=== PATIENT | female | born 1960 | race Hispanic/Latino ===

== ENCOUNTER 2019-12-20 22:15 | Emergency (ER) | payer BC, MEDICARE ==
[~2019-12-20] VITALS: Ht 160 cm; Wt 82.1 kg
[~2019-12-20 22:15] MED LIST changes: -B&O 60MG R/S 60 MG SUPP PR ONE; -BOTULINUM TOXIN TYPE A 100 UNIT VIAL IM ONE; -CEFTRIAXONE SOD 1 GM/NS 50 ML 50 ML IV ONE; -CIPRO500 MG PO; -DICYCLOMINE HCL20 MG PO; -GENTAMICIN 80MG/NS 100 ML 100 ML IV ONE; -INSULIN REGULAR, HUMAN 100 UNIT/1 ML 3ML VIAL ONE; -IOPAMIDOL 300MG/ML 50ML INFUS..BTL IV ONE; -PROMETHAZINE HC25 M1 PO
[2019-12-20] MEDS ORDERED: KETOROLAC TROMETHAMINE 30 MG/ML VIAL IV STA (22:36)
[2019-12-20] MEDS ORDERED: SODIUM CHLORIDE 0.9% 1000ML 1,000 ML IV STA ×3 (22:42→23:49)
--- NOTE | 2019-12-20 22:42 | Emergency Department Note ---
History of Present Illnes History of Present Illness Chief Complaint: suprapubic bladder sharp cramping pain History of Present Illness This is a 59 year old female. 11.5 hours ago pt had botox injection bladder to treat incontinence and removal of calcification from a ureter. Historian: Patient Arrival Mode: Car History limited by: condition of the patient (normal) Scrum Project Manager Required: No Onset (how long ago): hour(s) (7.5) Location: see above Quality: sharp Radiation: Reports non-radiation Severity: severe Onset quality: gradual Duration (how long): hour(s) (7.5) Timing of current episode: constant Progression: worsening Chronicity: new Context: Denies recent illness, Denies recent surgery, Denies recent immobilization, Denies recent travel, Denies new medications, Denies hx of DVT/PE, Denies non-compliance w/ medications Relieving factors: none Exacerbating factors: movement Associated symptoms: Reports denies other symptoms Treatments prior to arrival: none Past Medical/Family History Physician Review I have reviewed the patient's past medical and family history. Any updates have been documented here. Past Medical History Recent Fever: No Clinical Suspicion of Infectio: No New/Unexplained Change in Ment: No Past Medical History: Diabetes Other Medical History: CHRONIC BACK ANXIETY Other Surgery: brain aneursym Social History Smoking Cessation: Never Smoker Counseling Performed: No Any Illegal Drug Use: No TB Exposure/Symptoms: No Physically hurt or threatened: No Family History Family history of heart diseas: No Other Last Tetanus: unknown Any Pre-Existing Lines (PICC,: No Is patient up to date on immun: No Review of Systems Review of Systems Constitutional: Reports no symptoms EENTM: Reports no symptoms Cardiovascular: Reports no symptoms Respiratory: Reports no symptoms Gastrointestinal: Reports as per HPI Genitourinary: Reports no symptoms Musculoskeletal: Reports no symptoms Integumentary: Reports no symptoms Neurological: Reports no symptoms Psychological: Reports no symptoms Endocrine: Reports no symptoms Hematological/Lymphatic: Reports no symptoms Review of other systems: All other systems negative Physical Exam Related Data Allergies: Coded Allergies: ondansetron (Verified Allergy, Severe, 12/17/19) SOB, ITCHING celecoxib (Verified Allergy, Intermediate, hives, 11/24/16) duloxetine (Verified Allergy, Intermediate, swelling, 11/24/16) Vital signs reviewed: Yes Physical Exam CONSTITUTIONAL Constitutional: Present well-developed, Present well-nourished HENT HENT: Present normocephalic, Present atraumatic, Present oropharynx clear/moist, Present nose normal HENT L/R: Present left ext ear normal, Present right ext ear normal EYES Eyes: Reports PERRL, Reports conjunctivae normal NECK Neck: Present ROM normal PULMONARY Pulmonary: Present effort normal, Present breath sounds normal CARDIOVASCULAR Cardiovascular: Present regular rhythm, Present heart sounds normal, Present capillary refill normal, Present normal rate GASTROINTESTINAL Abdominal: Present soft, Present bowel sounds normal, Present tender (suprapubic), Present guarding; Absent rebound GENITOURINARY Genitourinary: Present exam deferred SKIN Skin: Present warm, Present dry MUSCULOSKELETAL Musculoskeletal: Present ROM normal NEUROLOGICAL Neurological: Present alert, Present oriented x 3, Present no gross motor or sensory deficits PSYCHOLOGICAL Psychological: Present mood/affect normal, Present judgement normal Results Laboratory Lab results reviewed: Yes Laboratory comments cbc normal except hbg=11.1, cmp nl except k=3.4, glu= 601, UA= +LEUKS Imaging Imaging results reviewed: Yes Impressions [place] [address] Patient Name: JHONNY BROWNING MR #: [id number] : 1960 Age/Sex: 59/F Req #: [id number] Adm Physician: Ordered by: KARY CORREA Report #: [id number] Location: [facility] Room/Bed: Procedure: [id number] HOPD/CT ABD/PEL WITH CONTRAST-HOPD Exam Date: 12/20/19 Exam Time: 2330 REPORT STATUS: Signed EXAM: CT Abdomen and Pelvis WITH contrast INDICATION: ^pain ^[id number] ^[id number] COMPARISON: None. TECHNIQUE: Abdomen and pelvis were scanned utilizing a multidetector helical scanner from the lung base to the pubic symphysis after administration of IV contrast. Coronal and sagittal reformations were obtained. Routine protocol was performed. Scan was performed when during portal venous phase. IV CONTRAST: 100 mL of Isovue 370 ORAL CONTRAST: None COMPLICATIONS: None RADIATION DOSE: Total DLP: 790 mGy*cm Estimated effective dose: (DLP x 0.015 x size factor) mSv CTDIvol has been reviewed. It is below the limits set by the Radiation Protocol Committee (RPC). Dose modulation, iterative reconstruction, and/or weight based adjustment of the mA/kV was utilized to reduce the radiation dose to as low as reasonably achievable. FINDINGS: LINES and TUBES: None. LOWER THORAX: Bibasilar atelectasis. HEPATOBILIARY: No focal hepatic lesions. No biliary ductal dilation. GALLBLADDER: No radio-opaque stones or sludge. No wall thickening. SPLEEN: No splenomegaly. PANCREAS: No focal masses or ductal dilatation. ADRENALS: No adrenal nodules KIDNEYS/URETERS: Kidneys enhance symmetrically. No hydronephrosis. No cystic or solid mass lesions. No stones. GI TRACT: No abnormal distention, wall thickening, or evidence of bowel obstruction. Appendix is normal. PELVIC ORGANS/BLADDER: Trace air in the nondependent bladder lumen. Hysterectomy. No adnexal masses. LYMPH NODES: No lymphadenopathy. VESSELS: Arterial calcifications. PERITONEUM / RETROPERITONEUM: No free air or fluid. BONES: Kyphoplasty material within mild L1 and L2 vertebral body compression fracture which are fused. Degenerative changes. SOFT TISSUES: Unremarkable. IMPRESSION: Trace air in the bladder lumen, correlate with urinalysis for evidence of urinary tract infection. Signed by: Roby Rob DO on 12/21/2019 12:25 AM Dictated By: ROBY ROB DO Transcribed By: LUBNA on 12/21/1924 COPY TO: KARY CORREA~ Critical Care Time Comments BLOOD SUGAR IMPROVED SIGNIFICANTLY 300'S. PT ADMITS BG 300'S IS PT'S BASELINE. Assessment & Plan Medical Decision Making MDM uti, perforation Assessment & Plan Final Impression: (1) UTI (urinary tract infection) (2) Hyperglycemia Depart Disposition: HOME, SELF-[facility] Meds Active Scripts Dicyclomine Hcl (DICYCLOMINE HCL) 20 Mg Tablet, 20 MG PO Q6H PRN for MODERATE PAIN (4-6), #30 TAB Prov:KARY CORREA 12/21/19 Ciprofloxacin Hcl (CIPRO) 500 Mg Tablet, 500 MG PO Q12H, #20 TAB Prov:KARY CORREA 12/21/19 Promethazine Hcl (PROMETHAZINE HCL) 25 Mg Tablet, 25 MG PO Q4H PRN for NAUSEA AND VOMITING, #20 TAB Prov:KARY CORREA 12/21/19 Reported Medications Metformin Hcl (METFORMIN HCL) 500 Mg Tablet, 1000 MG PO BID, #60 TAB 12/17/19 Hydrochlorothiazide (HYDROCHLOROTHIAZIDE) 25 Mg Tablet, 25 MG PO DAILY, #30 TAB 12/17/19 Losartan/Hydrochlorothiazide (LOSARTAN-HCTZ 100-12.5 MG TAB) 1 Each Tablet, 1 TA B PO DAILY 12/17/19 Insulin NPH Hum/Reg Insulin Hm (Humulin 70/30 Kwikpen) 100 Unit/1 Ml Insuln.pen, 15 UNITS SC BID 12/17/19 Bupropion Hcl (WELLBUTRIN SR) 150 Mg Tablet.er, 300 MG PO DAILY 12/17/19 Hydrocodone Bit/Acetaminophen (NORCO 10-325 TABLET) 1 Each Tablet, 1 TAB PO Q4HR PRN for PAIN 11/26/16 Metoprolol Succinate (METOPROLOL SUCCINATE) 25 Mg Tab.er.24h, 25 MG PO DAILY 07/23/15 Discontinued Reported Medications Insuln Asp Prt/Insulin Aspart (NOVOLOG MIX 70-30 FLEXPEN SYRN) 100 Unit/1 Ml Insuln.pen, 10 UNITS SQ AC 11/26/16 Clonazepam (CLONAZEPAM) 1 Mg Tablet, 2 MG PO QID PRN for ANXIETY, TAB 11/26/16 Citalopram Hydrobromide (CITALOPRAM HBR) 40 Mg Tablet, 40 MG PO DAILY 07/24/15 Insulin Detemir (LEVEMIR) 100 Unit/1 Ml Vial, 18 UNIT SQ HS 07/24/15 Lisinopril* (ZESTRIL*) 20 Mg Tablet, 20 MG PO Q12H 07/23/15 Medications in the ED Sodium Chloride 10 ml PRN PRN INJ IV SITE FLUSH; Start 12/20/19 at 22:45; Stop 12/13/20 at 22:44; Status UNV Ketorolac Tromethamine 30 mg ONCE STAT IV ; Start 12/20/19 at 22:36; Stop 12/20/19 at 22:37; Status UNV KARY CORREA Dec 20, 2019 22:42
[2019-12-20] MEDS ORDERED: SODIUM CHLORIDE FLUSH 10 ML SYR INJ PRN (22:45)
[2019-12-20] MEDS ORDERED: DICYCLOMINE HCL 20 MG/2 ML VIAL IM ONE ×2 (22:45→22:59)
--- OUTSIDE RECORDS SUMMARY | 2019-12-20 22:54 | XMS REPORT | Clinical Summary ---
Author Author [facility] Organization [facility] Address Unknown Phone Unavailable Care Team Providers Care Business Continuity Coordinator Name Role Phone Sammy Ayala MD PCP Allergies Comments Active Allergy Reactions Severity Noted Date Celecoxib Itching, Rash Low 05/21/2016 Duloxetine Itching 05/21/2016 Fosphenytoin Itching 05/21/2016 Medications End Date Status Medication Sig Dispensed Refills Start Date Active aspirin (ECOTRIN) 81 MG Take 81 mg by 0 enteric coated tablet mouth every morning. Active citalopram (CeleXA) 40 MG Take 40 mg by 0 tablet mouth every morning. Active montelukast (SINGULAIR) Take 10 mg by 0 10 mg tablet mouth nightly as needed. Active metFORMIN (GLUCOPHAGE) Take 1,000 mg 0 10/26/ 01 500 mg tablet by mouth 2 8 (two) times a day. Active ALPRAZolam (XANAX) 0.5 MG Take 0.5 mg 0 tablet by mouth 2 (two) times a day as needed. Active atorvastatin (LIPITOR) 40 Take 1 tablet 0 / 0/201 MG tablet by mouth 8 nightly. Active buPROPion XL (WELLBUTRIN Take 1 tablet 0 12/06 XL) 150 MG 24 hr tablet by mouth 8 every morning. Active pregabalin (LYRICA) 50 MG Take 50 mg by 0 capsule mouth 2 (two) times a day. Active metoprolol tartrate Take 50 mg by 0 (LOPRESSOR) 25 mg tablet mouth every 8 morning. Active amLODIPine (NORVASC) 10 Take 10 mg by 0 mg tablet mouth every morning. Active losartan-hydrochlorothiaz Take 1 tablet 0 sohail (HYZAAR) 100-25 mg by mouth per tablet every morning. Active cholecalciferol, vitamin Take 5,000 0 D3, (VITAMIN D3) 5,000 Units by unit tablet mouth every morning. Active omega 7-tkb-fco-fish oil Take 1,000 mg 0 (FISH OIL) 100-160-1,000 by mouth mg capsule every morning. Active biotin 1 mg tablet Take 1,000 0 mcg by mouth 3 (three) times a day. Active oxyCODone-acetaminophen Take 1 tablet 0 (PERCOCET) 5-325 mg per by mouth tablet every 4 (four) hours as needed for moderate pain or severe pain. Active Problems Problem Noted Date Chest pain 01/22/2018 Acute back pain with sciatica, left 01/12/2018 Opioid dependence with opioid-induced disorder 05/28 Leukocytosis 05/22/2016 Toxic metabolic encephalopathy 05/22/2016 Chronic pain 05/22/2016 Acute on chronic respiratory failure with hypoxia and hypercapnia 05/21/2016 Aspiration pneumonia 05/21/2016 Accidental drug overdose 05/21/2016 Overview: Opiod Chronic obstructive pulmonary disease with acute exac erbation 05/21/2016 DM (diabetes mellitus) type II controlled with renal manifestation 05/21/2016 Septic shock due to undetermined organism 05/21/2016 Tracheal stenosis 05/21/2016 Immunizations Name Administration Dates Next Due FLUCELVAX QUAD PF 01/17/2018 Pneumococcal Conjugate 01/17/2018 13-Valent Surgical History Surgery Date Site/Laterality Comments CEREBRAL ANEURYSM REPAIR 02/06/2013 - 02/05/2014 TRACHEAL SURGERY 04/28/2016 balloon dilation of a tracheal stenosis under fluoroscopic guidance APPENDECTOMY CHOLECYSTECTOMY SECTION HYSTERECTOMY COLONOSCOPY CERVICAL FUSION Medical History Medical History Date Comments Hypertension Hyperlipidemia Diabetes mellitus (HCC) Stroke (HCC) TIA x3 Tracheal stenosis Subglottic stenosis Asthma UTI (urinary tract infection) PNA (pneumonia) HLD (hyperlipidemia) Depression Hallucinations Epilepsy (HCC) MIGDALIA (obstructive sleep apnea) DC (myocardial infarction) (HCC) Liver disease Family History Medical History Relation Name Comments Diabetes Brother HIV Brother Hepatitis Brother Hyperlipidemia Brother Hypertension Brother Alcohol abuse Father COPD Father Diabetes Father Hyperlipidemia Father Diabetes Mother Heart disease Mother Hyperlipidemia Mother Irritable bowel syndrome Mother Thyroid disease Mother Diabetes Sister Hyperlipidemia Sister Hypertension Sister Relation Name Status Comments Brother Father Mother Sister Social History Date Tobacco Use Types Packs/Day Years Used Never Smoker Smokeless Tobacco: Never Used Drinks/Week oz/Week Comments Alcohol Use No Sex Assigned at Date Recorded Not on file Last Filed Vital Signs Not on file Plan of Treatment Health Maintenance Due Date Last Done Comments DIABETES: RETINAL EYE 1970 EXAM DIABETIC FOOT EXAM 1970 URINE MICROALBUMIN 1970 CERVICAL CANCER SCREENING 1981 BREAST CANCER SCREENING 2010 COLONOSCOPY SCREENING 2010 SHINGLES VACCINES (#1) 2010 INFLUENZA VACCINE 09/07/2019 01/17/2018, 03/01/2017 Implants Device Identifier Shelf Expiration Date Model / Serial / L ot Implanted Type Area Manufactur er Aneurysm Clip Aneurysm Clip Results Not on fileafter 12/19/2018 Insurance Type Payer Benefit Subscriber ID Effective Phone Address Plan / Dates Group HMO [employer]IG[employer] CIGNA [id number] [id number] [employer] resent NG O MCR ADV Advance Directives For more information, please contact: [phone] Patient Service Porter Explanation Type Date Recorded Advance Directives, 05/26/2016 12:36 AM Living Will and Medical Power of Forge Press Operator Date Inactivated Comments Code Status Date Activated 05/31/2016 5:24 PM Full Code 05/22/2016 12:01 AM Code Status decision reached by: Patient
--- OUTSIDE RECORDS SUMMARY | 2019-12-20 22:54 | XMS REPORT | Clinical Summary ---
Author Author [facility] Organization [facility] Address Unknown Phone Unavailable Care Team Providers Care Vice President Of Software Development Name Role Phone Tomasa Bhakta DO PCP Pcp, No PCP Unavailable Allergies Comments Active Allergy Reactions Severity Noted Date Celecoxib 11/13/2014 Duloxetine 11/13/2014 Fosphenytoin 11/13/2014 Medications End Date Status Medication Sig Dispensed Refills Start Date Active aspirin (ASPIRIN) 81 mg Chew and 30 tablet 3 chewable swallow 1 8 tabletIndications: Chest tablet by pain, unspecified type, mouth daily. Acute low back pain with bilateral sciatica, unspecified back pain laterality Active blood glucose meter Use as 1 Kit 0 (PRECISION XTRA directed.. 8 GLUCOMETER)Indications: Type 2 diabetes mellitus with complication, with long-term current use of insulin Active blood glucose (PRECISION Use 3 times 50 Each 3 0 XTRA TEST STRIPS) test daily. 8 stripsIndications: Type 2 diabetes mellitus with complication, with long-term current use of insulin Active lancets 28 Use 3 times 100 Each 1 gaugeIndications: Type 2 daily. 8 diabetes mellitus with complication, with long-term current use of insulin Active nitroGLYCERIN (NITROSTAT) Dissolve 1 100 tablet 1 0.4 mg sublingual tablet under 8 tabletIndications: Chest the tongue pain, unspecified type, every 5 Essential hypertension minutes as needed, up to 3 times. If chest pain persists, call 911. Active metoprolol tartrate Take 1 tablet 180 tablet 1 10/08 (LOPRESSOR) 25 mg by mouth 2 8 tabletIndications: times daily. Essential hypertension Active metFORMIN (GLUCOPHAGE) Take 2 360 tablet 1 500 mg tabletIndications: tablets by 8 Type 2 diabetes mellitus mouth 2 times with complication, daily (with without long-term current meals). use of insulin Active atorvastatin (LIPITOR) 40 Take 1 tablet 90 tablet 1 mg tabletIndications: by mouth at 8 Hyperlipidemia, bedtime unspecified nightly. hyperlipidemia type Active gabapentin (NEURONTIN) Take 2 90 capsule 2 300 mg capsules by 8 capsuleIndications: Wrist mouth 3 times pain, left, Lumbosacral daily DO NOT spondylolysis drive while taking this medication as it could cause sleepiness.. Active losartan (COZAAR) 50 mg Take 1 tablet 90 tablet 1 tabletIndications: by mouth 8 Essential hypertension daily For blood pressure. Active acetaminophen-codeine Take 1 tablet 20 tablet 0 (TYLENOL/CODEINE #3) by mouth 8 300-30 mg per every 4 hours tabletIndications: Caries as needed for Pain. Active buPROPion (WELLBUTRIN XL) Take 1 180 tablet 0 150 mg extended release capsule daily 8 tabletIndications: for two Moderate episode of weeks, then recurrent major increase to 2 depressive disorder capsules daily. Active hydrOXYzine (ATARAX) 50 Take 1/2 or a 90 tablet 0 mg tabletIndications: whole tablet 8 Insomnia, unspecified daily as type, Anxiety needed for insomnia or anxiety. Active Problems Problem Noted Date Lumbosacral spondylolysis 09/18/2017 Goals of care, counseling/discussion 04/24/2017 Mixed hyperlipidemia 03/18/2017 Chronic midline low back pain with bila teral sciatica Essential hypertension Type 2 diabetes mellitus with complicat ion, without long-term current use of insulin Chest pain Single current episode of major depress rosalva disorder Acute low back pain with bilateral scia isaias Tachycardia Right leg pain Immunizations Name Administration Dates Next Due Influenza Vaccine, 11/23/2017 (Deferred: Patie nt Refused), 03/01/2017 Seasonal, Injectable Influenza, 11/29/2017 Vaccine<FLUCELVAX>(Multi- Dose) PPV 23 (Pneumococcal 03/18/2017 Polysaccharide 23 Valent) Tdap (Tetanus Toxoid, 05/10/2017 Reduced Diphtheria Toxoid And Acellular Pertussis, Absorbed) Family History Medical History Relation Name Comments Cirrhosis Brother Hypertension Brother Diabetes Father Hypertension Father Lung cancer Father Stroke Father Arthritis Mother Diabetes Mother Hypertension Mother Hypothyroid Mother Relation Name Status Comments Brother Alive Brother Daughter Alive x3 Daughter Alive Daughter Alive Father Maternal Grandfather Maternal Grandmother Mother Alive Paternal Grandfather Paternal Grandmother Sister Alive x2 Son Alive x2 Son Alive Social History Date Tobacco Use Types Packs/Day Years Used Never Smoker Smokeless Tobacco: Never Used Tobacco Cessation: Counseling Given: No Drinks/Week oz/Week Comments Alcohol Use occassionally Yes Food Insecurity Answer Date Recorded Within the past 12 months, you worried that your Never jeana e 03/08/2017 food would run out before you got money to buy more. Within the past 12 months, the food you bought Never true 03/08/2017 just didn't last and you didn't have mo saurav to get more. Sex Assigned at Date Recorded Not on file Industry Job Start Date Occupation Not on file Not on file Not on file Travel End Travel History Travel Start No recent travel history available. Last Filed Vital Signs Not on file Plan of Treatment Health Maintenance Due Date Last Done Comments DM Retinal Exam (Yearly) 03/15/2018 03/15/2017 Colonoscopy 1yr 03/21/2018 03/21/2017 Breast Cancer Scrn 04/18/2018 04/18/2017 (Yearly) DM HGBA1C (Yearly) 05/31/2018 05/31/2017, 02/28/2017, 12/09/2016, Additional history exists DM Foot Exam (Yearly) 09/18/2018 09/18/2017, 05/10/2017 IMM Influenza Seasonal 11/07/2019 11/29/2017, Nov to April (>/= 19 yrs) 03/01/2017 Goals Goal Patient Associated Recent Progress Patient-Stat Aut hor Goal Type Problems ed? Reduce fat intake Diet No Anastasia Haro LD LOWER BLOOD GLUCOSE Lifestyle On track (04/19/2017 No Daina, 9:09 AM CDT) Yvette Eat Healthy Lifestyle On track (04/19/2017 No Tomasa Bhakta, 9:09 AM CDT) DO Exercise Regularly Self Not on track No Betty Luna management (04/19/2017 9:09 AM Tayo RN CDT) Results Not on fileafter 12/19/2018 Insurance Type Payer Benefit Subscriber ID Effective Phone Address Plan / Dates Group [employer] 2017-P [phone] [id number] [place] [address] [place] [id number] xxxxxxxxx 2017- [phone] QUALIFIED Present 2004 MEDICARE [place], [place] BENEFICIAR [id number] Y Advance Directives Date Inactivated Comments Code Status Date Activated 03/23/2017 7:38 PM Discussed goals of care with pt at ~0400 on 03/18/17 and pt clear in decision to be FULL CODE. Full Code 03/18/2017 4:44 AM 03/01/2017 9:33 PM Full Code 02/28/2017 9:12 AM 12/10/2016 3:39 PM Full Code 12/09/2016 3:31 AM
--- OUTSIDE RECORDS SUMMARY | 2019-12-20 22:55 | XMS REPORT | Continuity of Care Document ---
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 Temperature Oral (F) 97.5 F 01/26/2018 [facility] Heart Rate 69 {beats}/min 01/26/2018 [facility]: [facility] Respitory Rate 18 01/26/2018 [facility]: [facility] Systolic (mm Hg) 125 01/26/2018 [facility]: [facility] Diastolic (mm Hg) 73 01/26/2018 [facility]: [facility] Temperature Oral (F) 96.8 F 01/26/2018 [facility]: [facility] Heart Rate 68 {beats}/min 01/26/2018 [facility] Respitory Rate 18 01/26/2018 [facility]: [facility] Systolic (mm Hg) 125 01/26/2018 [facility] Diastolic (mm Hg) 72 01/26/2018 [facility]: [facility] Temperature Oral (F) 98.2 F 01/26/2018 [facility]: [facility] Heart Rate 66 {beats}/min 01/26/2018 [facility] Systolic (mm Hg) 125 01/26/2018 [facility]: [facility] Diastolic (mm Hg) 73 01/26/2018 [facility]: [facility] Temperature Oral (F) 96.3 F 01/26/2018 [facility] Respitory Rate 18 01/26/2018 [facility]: [facility] Heart Rate 66 {beats}/min 01/26/2018 [facility]: [facility] Systolic (mm Hg) 109 01/25/2018 [facility]: [facility] Diastolic (mm Hg) 65 01/25/2018 [facility]: [facility] Heart Rate 68 {beats}/min 01/25/2018 [facility]: [facility] Systolic (mm Hg) 132 01/25/2018 [facility]: [facility] Diastolic (mm Hg) 71 01/25/2018 [facility]: [facility] Heart Rate 77 {beats}/min 01/25/2018 [facility]: [facility] Weight 204.8 01/25/2018 [facility]: [facility] Respitory Rate 18 01/25/2018 [facility]: [facility] Systolic (mm Hg) 122 01/25/2018 [facility]: [facility] Diastolic (mm Hg) 62 01/25/2018 [facility] Heart Rate 53 {beats}/min 01/25/2018 [facility] Rate 18 01/25/2018 [facility]: [facility] Systolic (mm Hg) 105 01/25/2018 [facility]: [facility] Diastolic (mm Hg) 63 01/25/2018 [facility]: [facility] Temperature Oral (F) 98.2 F 01/25/2018 SNF: [facility] Heart Rate 78 {beats}/min 01/25/2018 SN[facility]: [facility] Systolic (mm Hg) 130 01/25/2018 [facility]: [facility] Diastolic (mm Hg) 95 01/25/2018 [facility]: [facility] Temperature Oral (F) 96.3 F 01/25/2018 [facility] 18 01/25/2018 [facility] Heart Rate 63 {beats}/min 01/25/2018 [facility] Respitory Rate 18 01/22/2018 [facility]: [facility] Systolic (mm Hg) 148 01/22/2018 [facility]: [facility] Diastolic (mm Hg) 72 01/22/2018 [facility]: [facility] Temperature Oral (F) 97.3 F 01/22/2018 SNF: [facility] Heart Rate 68 {beats}/min 01/22/2018 [facility] Rate 18 01/21/2018 [facility]: [facility] Systolic (mm Hg) 157 01/21/2018 [facility]: [facility] Diastolic (mm Hg) 70 01/21/2018 [facility]: [facility] Temperature Oral (F) 97.8 F 01/21/2018 [facility] Heart Rate 69 {beats}/min 01/21/2018 [facility]: [facility] Systolic (mm Hg) 157 01/21/2018 [facility]: [facility] Diastolic (mm Hg) 70 01/21/2018 [facility]: [facility] Heart Rate 69 {beats}/min 01/21/2018 [facility] Systolic (mm Hg) 157 01/21/2018 [facility]: [facility] Diastolic (mm Hg) 70 01/21/2018 [facility]: [facility] Heart Rate 69 {beats}/min 01/21/2018 [facility]: [facility] Respitory Rate 20 01/21/2018 [facility]: [facility] Systolic (mm Hg) 132 01/21/2018 [facility]: [facility] Diastolic (mm Hg) 75 01/21/2018 [facility]: [facility] Temperature Oral (F) 97.8 F 01/21/2018 [facility] Heart Rate 72 {beats}/min 01/21/2018 [facility]: [facility] Respitory Rate 18 01/21/2018 [facility]: [facility] Systolic (mm Hg) 120 01/21/2018 [facility]: [facility] Diastolic (mm Hg) 68 01/21/2018 [facility]: [facility] Temperature Oral (F) 98 F 01/21/2018 [facility] Heart Rate 65 {beats}/min 01/21/2018 [facility]: [facility] Respitory Rate 18 01/20/2018 [facility] Systolic (mm Hg) 116 01/20/2018 [facility]: [facility] Diastolic (mm Hg) 72 01/20/2018 [facility]: [facility] Temperature Oral (F) 97.8 F 01/20/2018 [facility] Heart Rate 64 {beats}/min 01/20/2018 [facility]: [facility] Systolic (mm Hg) 116 01/20/2018 [facility]: [facility] Diastolic (mm Hg) 72 01/20/2018 [facility]: [facility] Temperature Oral (F) 98.7 F 01/20/2018 [facility]: [facility] Respitory Rate 18 01/20/2018 [facility]: [facility] Heart Rate 64 {beats}/min 01/20/2018 [facility]: [facility] Systolic (mm Hg) 100 01/20/2018 [facility] Diastolic (mm Hg) 74 01/20/2018 [facility]: [facility] Heart Rate 64 {beats}/min 01/20/2018 [facility]: [facility] Systolic (mm Hg) 100 01/20/2018 [facility]: [facility] Diastolic (mm Hg) 74 01/20/2018 [facility]: [facility] Heart Rate 64 {beats}/min 01/20/2018 [facility]: [facility] Systolic (mm Hg) 100 01/20/2018 [facility]: [facility] Diastolic (mm Hg) 74 01/20/2018 [facility]: [facility] Heart Rate 64 {beats}/min 01/20/2018 [facility]: [facility] Systolic (mm Hg) 100 01/20/2018 [facility]: [facility] Diastolic (mm Hg) 74 01/20/2018 [facility]: [facility] Heart Rate 64 {beats}/min 01/20/2018 [facility]: [facility] Respitory Rate 18 01/20/2018 [facility]: [facility] Systolic (mm Hg) 104 01/20/2018 [facility] Diastolic (mm Hg) 66 01/20/2018 [facility]: [facility] Temperature Oral (F) 97.7 F 01/20/2018 [facility]: [facility] Heart Rate 62 {beats}/min 01/20/2018 [facility]: [facility] Respitory Rate 18 01/19/2018 [facility]: [facility] Systolic (mm Hg) 118 01/19/2018 [facility]: [facility] Diastolic (mm Hg) 76 01/19/2018 [facility]: [facility] Temperature Oral (F) 98.1 F 01/19/2018 [facility] Heart Rate 72 {beats}/min 01/19/2018 [facility] Respitory Rate 18 01/19/2018 [facility]: [facility] Systolic (mm Hg) 123 01/19/2018 [facility]: [facility] Diastolic (mm Hg) 64 01/19/2018 [facility]: [facility] Temperature Oral (F) 98 F 01/19/2018 SNF: [facility] Heart Rate 79 {beats}/min 01/19/2018 [facility] Systolic (mm Hg) 123 01/19/2018 [facility] Diastolic (mm Hg) 64 01/19/2018 [facility]: [facility] Heart Rate 79 {beats}/min 01/19/2018 [facility] Respitory Rate 18 01/19/2018 [facility] Systolic (mm Hg) 135 01/19/2018 [facility]: [facility] Diastolic (mm Hg) 69 01/19/2018 [facility]: [facility] Temperature Oral (F) 98.1 F 01/19/2018 SNF: [facility] Heart Rate 75 {beats}/min 01/19/2018 [facility] [place] Resp[facility] Rate 17 01/19/2018 [facility]: [facility] Systolic (mm Hg) 124 01/19/2018 [facility]: [facility] Diastolic (mm Hg) 70 01/19/2018 [facility] Temperature Oral (F) 98.1 F 01/19/2018 SNF: [facility] Heart Rate 62 {beats}/min 01/19/2018 [facility] Weight 205.6 01/18/2018 [facility]: [facility] Height 62 1 03/21/2017 [facility] Heart Rate 54 {beats}/min 01/18/2018 [facility]: [facility] [place] Heart Rate 54 {beats}/min 01/18/2018 [facility]: [facility] [place] Heart Rate 54 {beats}/min 01/18/2018 [facility]: [facility] Systolic (mm Hg) 132 01/18/2018 [facility]: [facility] Diastolic (mm Hg) 71 01/18/2018 [facility] Heart Rate 54 {beats}/min 01/18/2018 [facility]: [facility] Systolic (mm Hg) 110 01/17/2018 SN[facility]: [facility] [place] Diastolic (mm Hg) 71 01/17/2018 [facility]: [facility] [place] Temperature Oral (F) 98 F 01/17/2018 [facility]: [facility] Respitory Rate 18 01/17/2018 [facility]: [facility] Heart Rate 61 {beats}/min 01/17/2018 [facility]: [facility] Encounters No Data Provided for This Section Procedures No Data Provided for This Section Assessment and Plan No Data Provided for This Section Plan of Care No Data Provided for This Section Social History Social History Date Source Smoking StatusStart DateEnd Date Unknown if ever smoked 02/04/2018 19:30:16 01/06/2018 [facility]: [facility] Family History No Data Provided for This Section Advance Directives Order Name Results Value Date Source Advance Directives Advance Dir ectives Cardiopulmonary Resuscitation 01/22/2018 SN[facility]: [facility] Functional Status No Data Provided for This Section
[2019-12-20] MEDS ORDERED: SODIUM CHLORIDE 0.9% 1000ML 1,000 ML ONE (22:59)
[2019-12-20] MEDS ORDERED: KETOROLAC TROMETHAMINE 30 MG/ML VIAL ONE (22:59)
[2019-12-20] MEDS ORDERED: SODIUM CHLORIDE 0.9% 50ML 50 ML ONE (23:04)
[2019-12-20] MEDS ORDERED: IOPAMIDOL 370 MG/ML 200 ML INFUS..BTL INJ ONE (23:04)
[2019-12-20] MEDS ORDERED: CIPROFLOXACIN 400 MG/D5W 200ML 200 ML IV STA (23:49)
[2019-12-21] MEDS ORDERED: INSULIN REGULAR, HUMAN 100 UNIT/1 ML 3ML VIAL IV ONE
[2019-12-21] MEDS ORDERED: SODIUM CHLORIDE 0.9% 500ML 500 ML ONE ×3 (00:03→02:30)
[2019-12-21] MEDS ORDERED: CIPROFLOXACIN 400 MG/D5W 200ML 200 ML IV ONE (00:03)
--- NOTE | 2019-12-21 00:28 | Diagnostic Imaging Report ---
EXAM: CT Abdomen and Pelvis WITH contrast INDICATION: ^pain ^[id number] ^[id number] COMPARISON: None. TECHNIQUE: Abdomen and pelvis were scanned utilizing a multidetector helical scanner from the lung base to the pubic symphysis after administration of IV contrast. Coronal and sagittal reformations were obtained. Routine protocol was performed. Scan was performed when during portal venous phase. IV CONTRAST: 100 mL of Isovue 370 ORAL CONTRAST: None COMPLICATIONS: None RADIATION DOSE: Total DLP: 790 mGy*cm Estimated effective dose: (DLP x 0.015 x size factor) mSv CTDIvol has been reviewed. It is below the limits set by the Radiation Protocol Committee (RPC). Dose modulation, iterative reconstruction, and/or weight based adjustment of the mA/kV was utilized to reduce the radiation dose to as low as reasonably achievable. FINDINGS: LINES and TUBES: None. LOWER THORAX: Bibasilar atelectasis. HEPATOBILIARY: No focal hepatic lesions. No biliary ductal dilation. GALLBLADDER: No radio-opaque stones or sludge. No wall thickening. SPLEEN: No splenomegaly. PANCREAS: No focal masses or ductal dilatation. ADRENALS: No adrenal nodules KIDNEYS/URETERS: Kidneys enhance symmetrically. No hydronephrosis. No cystic or solid mass lesions. No stones. GI TRACT: No abnormal distention, wall thickening, or evidence of bowel obstruction. Appendix is normal. PELVIC ORGANS/BLADDER: Trace air in the nondependent bladder lumen. Hysterectomy. No adnexal masses. LYMPH NODES: No lymphadenopathy. VESSELS: Arterial calcifications. PERITONEUM / RETROPERITONEUM: No free air or fluid. BONES: Kyphoplasty material within mild L1 and L2 vertebral body compression fracture which are fused. Degenerative changes. SOFT TISSUES: Unremarkable. IMPRESSION: Trace air in the bladder lumen, correlate with urinalysis for evidence of urinary tract infection. Signed by: Roby Rob DO on 12/21/2019 12:25 AM
[2019-12-21] MEDS ORDERED: MORPHINE SULFATE INJ 4 MG/ML INJ 1ML IV STA (02:07)
[2019-12-21] MEDS ORDERED: PROMETHAZINE 25MG/ NS 50ML (IV) IV ONE (02:15)
[2019-12-21] MEDS ORDERED: ONDANSETRON HCL INJ 2MG/ML 2ML 2 MG/ML VIAL ONE (02:15)
[2019-12-21] MEDS ORDERED: MORPHINE SULFATE INJ 4 MG/ML INJ 1ML ONE ×2 (02:16→02:18)
[2019-12-21] MEDS ORDERED: PROMETHAZINE HCL (IM) 25 MG/ML VIAL IM ONE (02:18)
[2019-12-21] MEDS ORDERED: CIPRO500 MG PO (02:27)
[2019-12-21] MEDS ORDERED: PROMETHAZINE HC25 M1 PO (02:27)
[2019-12-21] MEDS ORDERED: DICYCLOMINE HCL20 MG PO (02:27)
== END 2019-12-21 03:50 | disposition home or self-care (01) ==
LOC: FSED 22:40
DX: N39.0 Urinary tract infection, site not specified (principal); E11.65 Type 2 diabetes mellitus with hyperglycemia; F41.9 Anxiety disorder, unspecified; M54.9 Dorsalgia, unspecified; G89.29 Other chronic pain
CPT/HCPCS: 36415; 74177; 80053; 81003; 82948; 85025; 99284; J0500; J0744; J1885; J2270; J2405; J2550; J7030; J7040; Q9967

== ENCOUNTER → 2019-12-20 | Day surgery (SDC) | payer MEDICARE ==
[2019-12-17 12:16] LABS: ANION GAP 12.8 mmol/L (8-16); BLOOD UREA NITROGEN 12 mg/dL (7-26); BUN/CREATININE RATIO 15 (6-25); CALCIUM 9.7 mg/dL (8.4-10.2); CARBON DIOXIDE 28 mmol/L (22-29); CHLORIDE 101 mmol/L (98-107); CREATININE, SERUM 0.82 mg/dL (0.57-1.11); EST GLOMERULAR FILTRATION RATE > 60 ML/MIN (60-); GLUCOSE 127 mg/dL (74-118); POTASSIUM 3.8 mmol/L (3.5-5.1); SODIUM 138 mmol/L (136-145)
[~2019-12-20] MED LIST: B&O 60MG R/S 60 MG SUPP PR ONE; BOTULINUM TOXIN TYPE A 100 UNIT VIAL IM ONE; CEFTRIAXONE SOD 1 GM/NS 50 ML 50 ML IV ONE; CIPRO500 MG PO; CITALOPRAM HBR40 MG PO; CLONAZEPAM1 MG PO; DICYCLOMINE HCL20 MG PO; GENTAMICIN 80MG/NS 100 ML 100 ML IV ONE; HUMULIN 70100 UNIT/3 SC; HYDROCHLOROTHIA25 MG PO; INSULIN REGULAR, HUMAN 100 UNIT/1 ML 3ML VIAL ONE; IOPAMIDOL 300MG/ML 50ML INFUS..BTL IV ONE; KLONOPIN1 MG PO; LEVEMIR100 UNIT/1 SQ; LOSARTAN-HCTZ1 EAC2 PO; METFORMIN HCL500 MG PO; METOPROLOL SUCC25 MG PO; MUSCLE RELAXANT PO; NORCO 10-325 T1 EACH PO; NOVOLOG MI100 UNIT/1 SQ; PROMETHAZINE HC25 M1 PO; WELLBUTRIN SR150 MG PO; ZESTRIL20 MG PO; farxiga PO; levimer
[2019-12-20 13:35] VITALS: BP 150/72
--- NOTE | 2019-12-21 15:48 | Operative Report ---
DATE OF PROCEDURE: 12/20/2019 SURGEON: Juan Saavedra MD PREOPERATIVE DIAGNOSES: 1. Refractory urge incontinence. 2. Urinary tract infection. POSTOPERATIVE DIAGNOSES: 1. Refractory urge incontinence. 2. Urinary tract infection. 3. Grade 1 cystocele only on the cephalad portion of the anterior vaginal wall. 4. Grade 4 rectocele. 5. Atrophic (senile) vaginitis. OPERATIONS PERFORMED: 1. Cystoscopy with bilateral ureteral catheterization and retrograde ureteropyelography. 2. Interpretation of retrograde ureteropyelography, no radiologist present. 3. Supervision of fluoroscopy, no radiologist present. 4. Pelvic examination under anesthesia. 5. Cystourethroscopy with intravesical injection of Botox (separate procedure performed for the refractory incontinence). ANESTHESIA: General. COMPLICATIONS: None. CLINICAL SUMMARY: Lexie Tejada is a 59-year-old woman, who underwent urethral sling placement approximately five years ago for stress incontinence. The patient has not had significant problems with stress continence, but has had some urge incontinence. She is brought for the above procedures. She is aware of the risks of bleeding, infection, injury to adjacent structures, failure of the procedure, urinary retention, need for catheterization and she elected to proceed. OPERATIVE PROCEDURE IN DETAIL: Informed consent was verified, Lexie Tejada was properly identified and taken to the operating room, placed on the cystoscopy table in supine position. Anesthesia was uneventfully begun. The patient was then carefully gently repositioned in dorsal lithotomy position with all pressure points well padded. Genitalia were prepared and draped in usual sterile fashion. A 21-Monegasque cystourethroscope sheath with the obturator in place with instrument inserted into the patient's urethra. The bladder was drained. Panendoscopy of the bladder revealed no suspicious lesions, no tumors, no stones, and no diverticula, normally positioned and configured ureteral orifices were identified. Grade 1 trabeculations were noted. 100 units of Botox were dissolved in 10 mL of sterile saline. There were then injected in 1 mL aliquots in an even distribution throughout the supratrigonal bladder. and retrograde ureteropyelography was performed. INTERPRETATION OF RETROGRADE URETEROPYELOGRAPHY: Contrast was instilled in retrograde fashion bilaterally. There were no tumors, no stones, and no diverticula. Unobstructed drainage was observed bilaterally fluoroscopically. There was evidence of kyphoplasty in the patient's spine. 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 The patient's bladder was drained. The cystoscope was withdrawn. Pelvic examination under anesthesia revealed the patient mid urethral sling seems to be in good condition. There was no urethral hypermobility. There was no evidence of erosion. There is a very minimal cystocele in the cephalad most extent of the anterior vaginal wall. There was also grade 4 rectocele, which we will defer to the patient's content development specialist. No abnormal pelvic masses could be appreciated. The patient was then uneventfully reversed from anesthesia and taken to recovery room in stable condition. There were no complications of the procedure and she tolerated the procedure well. Special postop instructions were given. We will follow the patient up in approximately one month to determine the next step and possibly determine when additional Botox injection would be necessary. Juan Saavedra MD [place]/MODL /[id number]
== END | disposition home or self-care (01) ==
LOC: OR 09:50
PROVIDERS: ATTEND Urology
DX: N39.41 Urge incontinence (principal); N39.0 Urinary tract infection, site not specified; N32.89 Other specified disorders of bladder; N28.1 Cyst of kidney, acquired; N81.10 Cystocele, unspecified; N81.6 Rectocele; N95.2 Postmenopausal atrophic vaginitis; I10 Essential (primary) hypertension; E11.9 Type 2 diabetes mellitus without complications; G62.9 Polyneuropathy, unspecified; I25.2 Old myocardial infarction; F32.9 Major depressive disorder, single episode, unspecified; Z88.6 Allergy status to analgesic agent; Z88.8 Allergy status to other drugs, medicaments and biological substances; Z01.810 Encounter for preprocedural cardiovascular examination; Z01.812 Encounter for preprocedural laboratory examination; Z20.828 Contact with and (suspected) exposure to other viral communicable diseases; Z79.4 Long term (current) use of insulin; Z86.73 Personal history of transient ischemic attack (TIA), and cerebral infarction without residual deficits; Z98.890 Other specified postprocedural states
CPT/HCPCS: 36415 ×2; 52005; 52287; 74420; 80048; 82948; 93005; C1758; J0587; J0696; J1580; Q9967; U0002; J1817

== ENCOUNTER → 2020-06-11 | Day surgery (SDC) | payer MEDICARE ==
[2020-06-08 10:04] LABS: BASOPHILS # (AUTO) 0.1 (0.0-0.1); BASOPHILS % 0.6 % (0.0-1.0); EOSINOPHILS # (AUTO) 0.1 (0.0-0.4); EOSINOPHILS % 0.7 % (0.0-6.0); HEMATOCRIT 42.1 % (34.2-44.1); HEMOGLOBIN 14.3 g/dL (12.0-16.0); LYMPHOCYTES % 19.2 % (18.0-39.1); MEAN CORPUSCULAR HEMOGLOBIN 28.5 pg (28-32); MEAN CORPUSCULAR VOLUME 83.9 fL (81-99); MONOCYTES # (AUTO) 0.8 (0.2-0.8); MONOCYTES % 7.6 % (4.4-11.3); NEUTROPHILS # (AUTO) 7.6 (2.1-6.9); NEUTROPHILS % 71.1 % (38.7-80.0); PLATELET COUNT 223 x10e3/uL (140-360); RED BLOOD COUNT 5.02 x10e6/uL (3.6-5.1); RED CELL DISTRIBUTION WIDTH 12.5 % (11.7-14.4)
[2020-06-08 10:27] LABS: ALBUMIN 4.2 g/dL (3.5-5.0); ALBUMIN/GLOBULIN RATIO 1.1 (0.8-2.0); CALCIUM 10.4 mg/dL (8.4-10.2); CREATININE, SERUM 1.07 mg/dL (0.57-1.11)
[~2020-06-11] VITALS: Ht 157.5 cm; Wt 73.5 kg
[2020-06-11] VITALS (8 sets, daily range): BP systolic 91–152; BP diastolic 67–77
[~2020-06-11] MED LIST changes: +ALPRAZOLAM 0.5 MG TAB ONE; +ATORVASTATIN CA20 MG PO; +CIPRO500 MG PO; +DICYCLOMINE HCL20 MG PO; +DIPHENHYDRAMINE HCL 25 MG CAP ONE; +FENTANYL CITRATE/PF 100MCG/2 ML INJ ONE; +HEPARIN SOD (PORCINE) 1000 UNIT/ML 30ML ONE; +HEPARIN SOD/SOD CHLORIDE 2,000 ML ONE; +HYDRALAZINE HCL25 MG PO; +IOPAMIDOL 370 MG/ML 200 ML INFUS..BTL INJ ONE; +LIDOCAINE HCL 2% LOCAL 20 ML VIAL ONE; +MIDAZOLAM HCL 2 MG/2 ML VIAL ONE; +NIFEDIPINE ER30 M1 PO; +NITROGLYCERIN/D5W 200 MCG/ML 250 ML ONE; +PROMETHAZINE HC25 M1 PO; +SODIUM CHLORIDE 0.9% 1000ML 1,000 ML ONE; +TIZANIDINE HCL4 M1 PO; +VERAPAMIL HCL 2.5 MG/ML 2 ML VIAL ONE
== END | disposition home or self-care (01) ==
LOC: CATH LAB 10:36
PROVIDERS: ATTEND Internal Medicine Interventional Cardiology
DX: I25.119 Atherosclerotic heart disease of native coronary artery with unspecified angina pectoris (principal); R94.39 Abnormal result of other cardiovascular function study; I10 Essential (primary) hypertension; R09.89 Other specified symptoms and signs involving the circulatory and respiratory systems; E11.9 Type 2 diabetes mellitus without complications; E78.00 Pure hypercholesterolemia, unspecified; Z88.6 Allergy status to analgesic agent; Z88.8 Allergy status to other drugs, medicaments and biological substances; Z01.812 Encounter for preprocedural laboratory examination; Z20.822 Contact with and (suspected) exposure to COVID-19; Z79.84 Long term (current) use of oral hypoglycemic drugs; Z68.30 Body mass index [BMI] 30.0-30.9, adult; Z82.3 Family history of stroke; Z82.49 Family history of ischemic heart disease and other diseases of the circulatory system
CPT/HCPCS: 36415; 76937; 80053; 83880; 85025; 93454; C1887; J1644; J2001; J2250; J3010; J7030; Q9967; U0002; 99152

== ENCOUNTER 2022-05-31 13:26 | Observation (INO) | payer BC, MEDICARE, OTHER ==
[~2022-05-31] VITALS: Ht 157.5 cm; Wt 69.9 kg
[~2022-05-31 13:26] MED LIST changes: -ALPRAZOLAM 0.5 MG TAB ONE; -DIPHENHYDRAMINE HCL 25 MG CAP ONE; -FENTANYL CITRATE/PF 100MCG/2 ML INJ ONE; -HEPARIN SOD (PORCINE) 1000 UNIT/ML 30ML ONE; -HEPARIN SOD/SOD CHLORIDE 2,000 ML ONE; -IOPAMIDOL 370 MG/ML 200 ML INFUS..BTL INJ ONE; -LIDOCAINE HCL 2% LOCAL 20 ML VIAL ONE; -MIDAZOLAM HCL 2 MG/2 ML VIAL ONE; -NITROGLYCERIN/D5W 200 MCG/ML 250 ML ONE; -SODIUM CHLORIDE 0.9% 1000ML 1,000 ML ONE; -VERAPAMIL HCL 2.5 MG/ML 2 ML VIAL ONE
[2022-05-31 14:27] LABS: BASOPHILS % 0.5 % (0.0-1.0); EOSINOPHILS % 0.4 % (0.0-6.0); HEMATOCRIT 41.7 % (34.2-44.1); HEMOGLOBIN 14.3 g/dL (12.0-16.0); LYMPHOCYTES # (AUTO) 1.7 (1.0-3.2); LYMPHOCYTES % 22.7 % (18.0-39.1); MEAN CORPUSCULAR HEMOGLOBIN 28.8 pg (28-32); MEAN CORPUSCULAR HGB CONC 34.3 g/dL (31-35); MEAN CORPUSCULAR VOLUME 84.1 fL (81-99); MONOCYTES # (AUTO) 0.4 (0.2-0.8); MONOCYTES % 5.7 % (4.4-11.3); NEUTROPHILS # (AUTO) 5.3 (2.1-6.9); NEUTROPHILS % 70.4 % (38.7-80.0); PLATELET COUNT 167 x10e3/uL (140-360); RED BLOOD COUNT 4.96 x10e6/uL (3.6-5.1); RED CELL DISTRIBUTION WIDTH 13.4 % (11.7-14.4)
[2022-05-31] MEDS: HYDRALAZINE HCL 20 MG/ML VIAL IV PRN ×2 (14:32→19:40)
[2022-05-31 14:36] LABS: AMPHETAMINES SCREEN,URINE NEGATIVE (NEGATIVE); BENZODIAZEPINES SCREEN,URINE NEGATIVE (NEGATIVE); PHENCYCLIDINE SCREEN,URINE NEGATIVE (NEGATIVE)
[2022-05-31] MEDS ORDERED: METOPROLOL TARTRATE 25 MG TAB PO ONE (14:45)
[2022-05-31] MEDS ORDERED: VALSARTAN 160 MG TAB PO ONE (14:45)
[2022-05-31 14:50] LABS: ALBUMIN/GLOBULIN RATIO 1.1 (0.8-2.0); ANION GAP 15.5 mmol/L (8-16); CALCIUM 9.8 mg/dL (8.4-10.2); CREATININE, SERUM 0.73 mg/dL (0.57-1.11); POTASSIUM 3.5 mmol/L (3.5-5.1)
[2022-05-31 14:52] LABS: SALICYLATE < 5.0 mg/dL (0-30)
[2022-05-31] MEDS ORDERED: ONDANSETRON HCL INJ 2MG/ML 2ML 2 MG/ML VIAL IV PRN ×2 (15:30→17:30)
[2022-05-31] MEDS ORDERED: LORAZEPAM 0.5 MG TAB PO PRN (15:30)
[2022-05-31] MEDS ORDERED: LORAZEPAM 1 MG TAB PO ONE (15:30)
[2022-05-31] MEDS ORDERED: SODIUM CHLORIDE FLUSH 10 ML SYR INJ PRN (15:30)
[2022-05-31] MEDS ORDERED: ASPIRIN 325 MG TAB PO ONE (15:45)
[2022-05-31 15:59] LABS: CREATINE KINASE 51 IU/L (29-168)
[2022-05-31] MEDS ORDERED: METOPROLOL TARTRATE INJ 1 MG/ML VIAL IV PRN (17:30)
[2022-05-31] MEDS ORDERED: POLYETHYLENE GLYCOL 3350 17 GM PACK PO PRN (17:30)
[2022-05-31] MEDS ORDERED: ACETAMINOPHEN 325 MG TAB PO PRN (17:30)
[2022-05-31] MEDS: PROMETHAZINE 12.5MG/ NACL 0.9% 12.5 MG/50 ML BAG IV PRN (18:29)
[2022-05-31] MEDS ORDERED: PROMETHAZINE HCL (IM) 25 MG/ML VIAL IM PRN (18:30)
[2022-05-31] MEDS ORDERED: ACETAMINOPHEN 325 MG TAB PO ONE (19:45)
[2022-05-31 20:30] VITALS: BP 123/84
[2022-05-31 21:00] VITALS: BP 123/84
[2022-05-31] MEDS ORDERED: METOPROLOL SUC100 MG PO (22:54)
[2022-05-31] MEDS ORDERED: GLIPIZIDE5 MG PO (22:54)
[2022-05-31] MEDS ORDERED: JARDIANCE10 MG PO (22:54)
[2022-05-31] MEDS ORDERED: ATORVASTATIN CA40 MG PO (22:54)
[2022-05-31] MEDS ORDERED: PANTOPRAZOLE SO40 MG PO (22:54)
[2022-05-31] MEDS ORDERED: OZEMPIC1 MG/0.71 SQ (22:54)
[2022-05-31] MEDS ORDERED: HYDROCODON-ACE1 EAC9 PO (22:54)
[2022-05-31] MEDS: HYDROCODONE/APAP 10MG-325MG TAB PO PRN (23:33)
[2022-06-01] VITALS: BP 117/78
[2022-06-01 02:07] LABS: CREATINE KINASE MB 1.4 ng/mL (0-5.0)
[2022-06-01] MEDS: PROMETHAZINE 12.5MG/ NACL 0.9% 12.5 MG/50 ML BAG IV PRN ×2 (02:19→09:17)
[2022-06-01] MEDS ORDERED: NON-FORMULARY MEDICATION (Metoprolol Succinate 100 MG) PO SCH (02:45)
[2022-06-01] MEDS ORDERED: NON-FORMULARY MEDICATION (Semaglutide (Ozempic) 1 MG) SQ SCH (02:45)
[2022-06-01 04:00] VITALS: BP 118/72
[2022-06-01 05:18] LABS: BASOPHILS % 0.4 % (0.0-1.0); EOSINOPHILS # (AUTO) 0.1 (0.0-0.4); EOSINOPHILS % 1.7 % (0.0-6.0); HEMATOCRIT 37.7 % (34.2-44.1); HEMOGLOBIN 13.2 g/dL (12.0-16.0); LYMPHOCYTES # (AUTO) 2.9 (1.0-3.2); LYMPHOCYTES % 40.3 % (18.0-39.1); MEAN CORPUSCULAR HEMOGLOBIN 29.1 pg (28-32); MEAN CORPUSCULAR VOLUME 83.2 fL (81-99); MONOCYTES # (AUTO) 0.5 (0.2-0.8); MONOCYTES % 7.1 % (4.4-11.3); NEUTROPHILS # (AUTO) 3.6 (2.1-6.9); NEUTROPHILS % 50.2 % (38.7-80.0); PLATELET COUNT 195 x10e3/uL (140-360); RED BLOOD COUNT 4.53 x10e6/uL (3.6-5.1); RED CELL DISTRIBUTION WIDTH 13.4 % (11.7-14.4)
[2022-06-01 05:43] LABS: ANION GAP 14.9 mmol/L (8-16); CALCIUM 9.4 mg/dL (8.4-10.2); CHOL/HDL RATIO 4.3 (3.0-3.6); CREATININE, SERUM 0.69 mg/dL (0.57-1.11); MAGNESIUM 1.7 MG/DL (1.3-2.1); PHOSPHORUS 4.4 MG/DL (2.3-4.7)
[2022-06-01 05:50] LABS: POTASSIUM 2.9 mmol/L (3.5-5.1)
[2022-06-01 06:03] LABS: THYROID STIMULATING HORMONE 1.352 uIU/mL (0.350-4.940)
[2022-06-01] MEDS ORDERED: POTASSIUM CHLORIDE 20MEQ/100ML 100 ML IV ONE ×2 (06:30→09:00)
[2022-06-01] MEDS ORDERED: PANTOPRAZOLE SOD 40 MG TABEC PO SCH (07:30)
[2022-06-01 08:00] VITALS: BP 131/71
[2022-06-01] MEDS ORDERED: GLIPIZIDE 5 MG TAB PO SCH (09:00)
[2022-06-01] MEDS ORDERED: LOSARTAN POTASSIUM 100 MG TAB PO SCH (09:00)
[2022-06-01] MEDS ORDERED: EMPAGLIFLOZIN 10 MG TABLET PO SCH (09:00)
[2022-06-01] MEDS ORDERED: HYDROCHLOROTHIAZIDE 25 MG TAB PO SCH (09:00)
[2022-06-01] MEDS ORDERED: MAGNESIUM SULF 1GRAM/DEXTROSE 100 ML IV ONE (09:00)
[2022-06-01] MEDS: FAMOTIDINE 20 MG TAB PO SCH ×2 (09:18→16:08)
[2022-06-01] MEDS: METOPROLOL SUCCINATE 50 MG TAB XL PO SCH ×2 (09:19→16:09)
[2022-06-01] MEDS: DOCUSATE SODIUM 100 MG CAP PO SCH ×2 (09:20→16:08)
[2022-06-01] MEDS ORDERED: PROMETHAZINE HCL 25 MG TAB PO PRN (10:00)
[2022-06-01 10:02] LABS: CREATINE KINASE MB 1.1 ng/mL (0-5.0)
[2022-06-01] MEDS ORDERED: POTASSIUM CHLORIDE 20 MEQ TAB CR PO ONE (11:00)
[2022-06-01 12:17] VITALS: BP 123/75
[2022-06-01] MEDS: HYDROCODONE/APAP 10MG-325MG TAB PO PRN ×2 (14:32→20:40)
[2022-06-01 15:50] VITALS: BP 121/84
[2022-06-01 20:00] VITALS: BP 144/82
[2022-06-01] MEDS ORDERED: ACETAMINOPHEN325 M1 PO (20:07)
[2022-06-01] MEDS ORDERED: GLIPIZIDE5 MG PO (20:07)
[2022-06-01] MEDS ORDERED: FAMOTIDINE20 MG PO (20:07)
[2022-06-01] MEDS ORDERED: Docusate Sodium PO (20:07)
[2022-06-01] MEDS ORDERED: TOPROL XL50 MG PO (20:07)
[2022-06-01] MEDS ORDERED: LOSARTAN-HCTZ1 EAC1 PO (20:07)
[2022-06-01] MEDS ORDERED: MIRALAX17 GM PO (20:07)
[2022-06-01] MEDS ORDERED: ATIVAN0.5 MG PO (20:07)
[2022-06-01] MEDS ORDERED: PROMETHAZINE HC25 M1 PO (20:07)
[2022-06-01] MEDS ORDERED: ATORVASTATIN 40 MG TAB PO SCH (21:00)
[2022-06-02] MEDS ORDERED: GLIPIZIDE 5 MG TAB PO SCH (07:30)
== END 2022-06-01 20:46 | disposition psychiatric hospital, planned readmission (93) ==
LOC: ER 13:30 → ERHOLD 15:28 → INTOOBSV 15:28 → MED/SURG 20:29
PROVIDERS: ADMIT Internal Medicine; ATTEND Internal Medicine
DX: I16.1 Hypertensive emergency (principal); R51.9 Headache, unspecified; H53.8 Other visual disturbances; Z86.73 Personal history of transient ischemic attack (TIA), and cerebral infarction without residual deficits; I25.10 Atherosclerotic heart disease of native coronary artery without angina pectoris; R07.2 Precordial pain; R45.851 Suicidal ideations; F32.A Depression, unspecified; F41.9 Anxiety disorder, unspecified; Z63.79 Other stressful life events affecting family and household; R13.10 Dysphagia, unspecified; R11.0 Nausea; R63.4 Abnormal weight loss; E83.42 Hypomagnesemia; E87.6 Hypokalemia; E11.9 Type 2 diabetes mellitus without complications; Z88.8 Allergy status to other drugs, medicaments and biological substances; Z79.4 Long term (current) use of insulin; Z79.84 Long term (current) use of oral hypoglycemic drugs; Z79.85 Long-term (current) use of injectable non-insulin antidiabetic drugs; E78.5 Hyperlipidemia, unspecified; E66.9 Obesity, unspecified; M54.9 Dorsalgia, unspecified; I45.10 Unspecified right bundle-branch block; Z88.6 Allergy status to analgesic agent; Z20.822 Contact with and (suspected) exposure to COVID-19; Z79.899 Other long term (current) drug therapy; Z68.28 Body mass index [BMI] 28.0-28.9, adult; Z82.49 Family history of ischemic heart disease and other diseases of the circulatory system
CPT/HCPCS: 0223U; 36415; 71045; 76770; 80048; 80053; 80061; 80307; 80320; 80329; 82088; 82533; 82550; 82553; 82948; 83036; 83735; 83835; 84100; 84132; 84244; 84443; 84484; 85025; 93005; 94799; 99284; G0378; J2550; J3475; J3480